=== PATIENT | male | born 1975 | race Caucasian/White ===

== ENCOUNTER 2016-12-29 20:16 | Emergency (ER) | payer OTHER ==
[2016-12-29 20:33] VITALS: RESP 20
--- NOTE | 2016-12-29 20:38 | C.PDOC ---
History Of Present Illness Patient presents to the ED with complaints of swollen lips and some hives appearing yesterday. Patient notes similar episodes and was seen in the ED for those symptoms from an unknown source. Patient denies taking any medications, fever, or chills. Time Seen by Provider: 12/29/16 20:37 Chief Complaint (Nursing): Allergic Reaction History Per: Patient History/Exam Limitations: no limitations Onset/Duration Of Symptoms: Hrs Current Symptoms Are (Timing): Still Present Possible Cause: Unknown Associated Symptoms: Skin Rash (some hives ), Swelling (swelling of the lips ) Home/EMS Treatment: None Severity: Mild Pain Scale Rating Of: 3 Recent travel outside of the [place]: No Past Medical History Reviewed: Historical Data, Nursing Documentation, Vital Signs Vital Signs: Last Vital Signs Temp 98.1 F 12/29/16 20:27 Pulse 81 12/29/16 20:27 Resp 20 12/29/16 20:27 BP 121/81 12/29/16 20:27 Pulse Ox 99 12/29/16 20:50 Family History: States: No Known Family Hx - Social History Hx Alcohol Use: No Hx Substance Use: No - Immunization History Hx Tetanus Toxoid Vaccination: No Hx Influenza Vaccination: No Hx Pneumococcal Vaccination: No Review Of Systems Constitutional: Negative for: Fever, Chills, Sweats ENT: Positive for: Mouth Swelling (lip swelling ) Cardiovascular: Negative for: Chest Pain, Palpitations, Light Headedness Respiratory: Negative for: Cough, Shortness of Breath Gastrointestinal: Negative for: Nausea, Vomiting, Abdominal Pain, Diarrhea Neurological: Negative for: Headache Physical Exam - Physical Exam Appears: Non-toxic, No Acute Distress Skin: Warm, Dry, Rash (scattered urticaria lesions on the chest ) Head: Atraumatic Eye(s): bilateral: Normal Inspection Oral Mucosa: Moist Tongue: Normal Appearing, No Swelling Lips: Swelling Throat: Normal, No Erythema, No Exudate, Other (tolerating own secretions and oropharynx clear ) Neck: Supple Chest: Symmetrical, No Deformity Cardiovascular: Rhythm Regular Respiratory: No Rales, No Rhonchi, No Stridor, No Wheezing Gastrointestinal/Abdominal: Soft, No Tenderness, No Distention, No Guarding, No Rebound Extremity: Normal ROM, No Tenderness Neurological/Psych: Oriented x3 ED Course And Treatment O2 Sat by Pulse Oximetry: 99 (room air ) Disposition Counseled Patient/Family Regarding: Studies Performed, Diagnosis, Need For Followup - Disposition Referrals: [facility] [Outside] [facility] [Outside] Disposition: HOME/ ROUTINE Disposition Time: 20:38 Condition: FAIR Additional Instructions: Please also used benadryl, pepcid and claritin Prescriptions: predniSONE [predniSONE Tab] 20 mg PO DAILY #5 tab Instructions: Urticaria (GEN), General Allergic Reaction (ED) Print Language: ROMANSH - Clinical Impression Clinical Impression: Allergic reaction - Scribe Statement The provider has reviewed the documentation as recorded by the Scribe Provider Attestation: Janet Naylor All medical record entries made by the Scribe were at my direction and personally dictated by me. I have reviewed the chart and agree that the record accurately reflects my personal performance of the history, physical exam, medical decision making, and the department course for this patient. I have also personally directed, reviewed, and agree with the discharge instructions and disposition.
[2016-12-29] MEDS ORDERED: DiphenhydrAMINE 50 mg/ml Inj IVP STA (20:44)
[2016-12-29] MEDS ORDERED: Sodium Chloride 0.9% 1,000 ML IV ONE (20:44)
[2016-12-29] MEDS ORDERED: DiphenhydrAMINE 50 mg/ml Inj ONE (21:06)
[2016-12-29] MEDS ORDERED: Sodium Chloride 0.9% 1,000 ML ONE (21:06)
[2016-12-29 22:38] VITALS: BP 131/86; PULSE 78; TEMP 97.9; O2SAT 100
== END 2016-12-29 22:38 | disposition home or self-care (01) ==
LOC: C.ER 20:16
DX: T78.40XA Allergy, unspecified, initial encounter (principal); X58.XXXA Exposure to other specified factors, initial encounter
CPT/HCPCS: 96361; 96374; 96375; 99284; J1200; J2930; J7040

== ENCOUNTER 2017-01-14 00:08 | Emergency (ER) | payer OTHER ==
[2017-01-14 00:17] VITALS: BP 160/93; PULSE 87; RESP 18; TEMP 97.4; O2SAT 96
--- NOTE | 2017-01-14 00:33 | C.PDOC ---
History Of Present Illness Patient is a 41 year old male who presents to the ER with a complaint of recurrent hives to the upper extremities. Patient states he took benadryl 2 hours [employer] with some relief. Patient is requesting tests, denies SOB, chest pain or throat tightness. Time Seen by Provider: 01/14/17 00:19 Chief Complaint (Nursing): Abnormal Skin Integrity History Per: Patient History/Exam Limitations: no limitations Onset/Duration Of Symptoms: Hrs Current Symptoms Are (Timing): Still Present Location Of Injury: Right: Arm, Left: Arm Quality Of Symptoms: Itching Recent travel outside of the [place]: No Past Medical History Reviewed: Historical Data, Nursing Documentation, Vital Signs Vital Signs: Last Vital Signs Temp 97.4 F L 01/14/17 00:14 Pulse 87 01/14/17 00:14 Resp 18 01/14/17 00:14 BP 160/93 H 01/14/17 00:14 Pulse Ox 96 01/14/17 04:16 - Medical History PMH: No Chronic Diseases Surgical History: No Surg Hx Family History: States: Unknown Family Hx - Social History Hx Alcohol Use: No Hx Substance Use: No - Immunization History Hx Tetanus Toxoid Vaccination: No Hx Influenza Vaccination: No Hx Pneumococcal Vaccination: No Review Of Systems ENT: Negative for: Throat Swelling Cardiovascular: Negative for: Chest Pain Respiratory: Negative for: Shortness of Breath Skin: Positive for: Rash Physical Exam - Physical Exam Appears: Non-toxic Skin: Warm, Dry, Rash (diffuse urticaria to upper extremities) Head: Atraumatic, Normacephalic Eye(s): bilateral: Normal Inspection, PERRL, EOMI, left: Other (Minimal swelling to lower eye lid) Oral Mucosa: Moist Tongue: Normal Appearing, No Swelling Lips: Normal Appearing, No Swelling Throat: Normal, No Erythema, No Drooling Neck: Normal, Supple Chest: Symmetrical, No Tenderness Cardiovascular: Rhythm Regular, No Murmur Respiratory: Normal Breath Sounds, No Rhonchi, No Stridor, No Wheezing Gastrointestinal/Abdominal: Soft, No Tenderness Neurological/Psych: Oriented x3, Normal Speech, Normal Cognition ED Course And Treatment O2 Sat by Pulse Oximetry: 96 (Room air) Pulse Ox Interpretation: Normal Progress Note: Pepcid and prednisone administered. Pt is in NAD, VSS. will follow up in clinic. Return precautions given and understood by pt Reassessment Condition: Improved Disposition Counseled Patient/Family Regarding: Diagnosis, Need For Followup, Rx Given - Disposition Referrals: Coy Walters MD [Staff Provider] - Disposition: HOME/ ROUTINE Disposition Time: 00:33 Condition: STABLE Additional Instructions: continue benadryl/ May take zyrtec if drowsy Take prednisone and pepcid as prescribed Return to ER if difficulty breathing or worse Prescriptions: Cetirizine HCl [Zyrtec] 10 mg PO DAILY #20 capsule Famotidine [Pepcid] 20 mg PO DAILY #20 tab predniSONE [Prednisone] 40 mg PO DAILY #10 tab Instructions: Urticaria (ED) - Clinical Impression Clinical Impression: Urticaria - Scribe Statement The provider has reviewed the documentation as recorded by the Scribluis Kaur All medical record entries made by the Floribluis were at my direction and personally dictated by me. I have reviewed the chart and agree that the record accurately reflects my personal performance of the history, physical exam, medical decision making, and the department course for this patient. I have also personally directed, reviewed, and agree with the discharge instructions and disposition.
== END 2017-01-14 00:59 | disposition home or self-care (01) ==
LOC: SUPCPDRO 00:08 → C.ER 00:08
DX: L50.9 Urticaria, unspecified (principal)

== ENCOUNTER 2017-07-15 03:03 | Emergency (ER) | payer OTHER ==
[2017-02-10 11:21] VITALS: BMI 36.9
[2017-07-15 03:11] VITALS: BP 155/98; PULSE 100; RESP 20; TEMP 98.5; O2SAT 96
--- NOTE | 2017-07-15 03:43 | C.PDOC ---
History Of Present Illness Patient is a 42 y/o male who presents to the ED with complaints of dental pain and facial swelling since yesterday. Patient believes to have infection. Denies trauma, fever or seeing a dentist or having recent dental work done. No other physical complaints at this time. Time Seen by Provider: 07/15/17 03:13 Chief Complaint (Nursing): Dental Pain History Per: Patient History/Exam Limitations: no limitations Onset/Duration Of Symptoms: Days (yesterday) Current Symptoms Are (Timing): Still Present Severity: Moderate Pain Scale Rating Of: 5 Recent travel outside of the [place]: No Past Medical History Reviewed: Historical Data, Nursing Documentation, Vital Signs Vital Signs: Last Vital Signs Temp 98.5 F 07/15/17 03:09 Pulse 100 H 07/15/17 03:09 Resp 20 07/15/17 03:09 BP 155/98 H 07/15/17 03:09 Pulse Ox 96 07/15/17 05:05 - Medical History PMH: No Chronic Diseases Denies: Chronic Kidney Disease Surgical History: No Surg Hx Family History: States: Unknown Family Hx - Social History Hx Alcohol Use: No Hx Substance Use: No - Immunization History Hx Tetanus Toxoid Vaccination: No Hx Influenza Vaccination: Yes Hx Pneumococcal Vaccination: No Review Of Systems ENT: Positive for: Mouth Pain (dental pain), Mouth Swelling (fissure swelling) Physical Exam - Physical Exam Appears: Well, Non-toxic, No Acute Distress Skin: Normal Color, Warm, Dry Eye(s): bilateral: Normal Inspection Ear(s): Bilateral: Normal Oral Mucosa: Moist Tongue: Normal Appearing, No Swelling Teeth: Caries (upper and lower molar), Tender To Palpation (left upper gum), Other (swelling to left upper gum cavity) Gingiva: Erythema, Tender, Abscess (left upper ), Other (small area of fluctuant mass to left upper gum; otherwise hard. ) Throat: Normal Neck: Normal, Supple Chest: Symmetrical Cardiovascular: Rhythm Regular, No Murmur Respiratory: No Rales, No Rhonchi, No Wheezing Neurological/Psych: Oriented x3, Normal Speech, Normal Cognition ED Course And Treatment O2 Sat by Pulse Oximetry: 96 Progress Note: Motrin PO and Penicillin administered. Patient advised to follow up with dentist at [facility] for dental work. Patient is to be discharged with recommendations for follow up and PO abx. Disposition Counseled Patient/Family Regarding: Diagnosis, Need For Followup, Rx Given - Disposition Referrals: Dentist , [facility] [Other] Disposition: HOME/ ROUTINE Disposition Time: 03:39 Condition: STABLE Additional Instructions: Please follow up with Dentist Take all meds prescribed Return to ER if ose Prescriptions: Ibuprofen [Motrin Tab] 800 mg PO QID #20 tab Penicillin VK [Penicillin VK Tab] 500 mg PO Q6H #28 tab Instructions: Dental Abscess (ED) Forms: Contour (Slovenian) - Clinical Impression Clinical Impression: Dental caries, Dental abscess - Scribe Statement The provider has reviewed the documentation as recorded by the Scribe Susan Estrada All medical record entries made by the Scribe were at my direction and personally dictated by me. I have reviewed the chart and agree that the record accurately reflects my personal performance of the history, physical exam, medical decision making, and the department course for this patient. I have also personally directed, reviewed, and agree with the discharge instructions and disposition.
== END 2017-07-15 03:57 | disposition home or self-care (01) ==
LOC: C.ER 03:03
DX: K02.9 Dental caries, unspecified (principal); K04.7 Periapical abscess without sinus